=== PATIENT | female | born 1945 | race African-American/Black ===

== ENCOUNTER 2021-06-28 15:47 | Emergency (ER) | payer OTHER, MEDICAID ==
[~2021-06-28] VITALS: Ht 165.1 cm; Wt 63.5 kg
[2021-06-28 15:55] VITALS: BP 158/70
--- NOTE | 2021-06-28 16:04 | NUR ---
SISTER NICHELLE FRAZIER [phone] INSISTS ON SITTING WITH PT
--- NOTE | 2021-06-28 17:11 | NUR ---
Pt moved to bed 5 by [facility].
--- NOTE | 2021-06-28 17:11 | NUR ---
76 Y/O F BIBA FROM [facility] STATES PT HAD AN UNWTINESSED FALL, NO LOC OR SYNCOPE REPORTED. PT IS C/O R ANKLE PAIN 05/31, UNAWARE OF HOW IT HAPPENED, PT IS A&OX1 TO REASON FOR VISIT, UNABLE TO AMBULATE AT THIS TIME. DENIES N/V/D; SKIN IS PINK/WARM/DRY, VISIBLE REDNESS, SWELLING ON R ANKLE; LUNGS CLEAR BL; HR EVEN AND REGULAR; PT DENIES ANY FEVER, CP, SOB, OR COUGH AT THIS TIME; PATIENT POSITIONED FOR COMFORT; HOB ELEVATED; BEDRAILS UP X2; BED DOWN. ER MADE AWARE OF PT STATUS. PMH: R BREAST MASECTOMY, HTN, DEMENTIA, HYPERLIPIDEMIA, STAGE 4 RENAL FAILURE NKA
--- NOTE | 2021-06-28 17:11 | NUR ---
PT BROUGHT TO BED 5 VIA JENNIFER SCHAFFER
[2021-06-28] MEDS ORDERED: ACET-503 PO (18:10)
--- NOTE | 2021-06-28 18:27 | NUR ---
CALLED PHARM MARTI, STATES I CAN CRUSH OXYCODONE/PERCOCET IF UNDER 10MG.
--- NOTE | 2021-06-28 18:27 | NUR ---
APPLIED SPLINT TO RIGHT ANKLE WITHOUT ANY ISSUES
--- NOTE | 2021-06-28 18:35 | NUR ---
MARTI FROM PHARM CALLED BACK, STATED MED CAN NOT BE CRUSHED. WASTED 1PO MED WTIH CHARGE ROME, PULLED ANOTHER OXYCODONE, WILL TRY WITH [facility]. PT HAS DIFFICULTY SWALLOWING AT THIS TIME.
[2021-06-28] MEDS: oxyCODONE/APAP 5/325 MG 1 TAB TAB PO SCH ×2 (18:54→18:56)
--- NOTE | 2021-06-28 18:59 | NUR ---
Patient discharged with v/s stable. Written and verbal after care instructions given and explained. Patient alert, oriented and verbalized understanding of instructions. Wheel Chair Assisted with by SISTER TO CAR, WILL BE GOING BACK TO [facility]. All questions addressed prior to discharge. ID band removed. Patient advised to follow up with PMD. Rx of ACETAMINOPHEN/CODEINE PHSOPHATE given. Patient educated on indication of medication including possible reaction and side effects. Opportunity to ask questions provided and answered. REPORT GIVEN TO RAJAN OSORIO, EXPECTS PT TO BE ARRIVING SOON
[2021-06-28 19:01] VITALS: BP 170/67
== END 2021-06-28 19:01 | disposition home or self-care (01) ==
LOC: MED 15:47
DX: S82.491A Other fracture of shaft of right fibula, initial encounter for closed fracture (principal); F03.90 Unspecified dementia, unspecified severity, without behavioral disturbance, psychotic disturbance, mood disturbance, and anxiety; W18.39XA Other fall on same level, initial encounter; Y93.89 Activity, other specified; Y92.89 Other specified places as the place of occurrence of the external cause; Y99.8 Other external cause status
CPT/HCPCS: 29515; 73610; 99283; Q0092